=== PATIENT | male | born 1955 | race Hispanic/Latino ===

== ENCOUNTER → 2024-10-15 | Outpatient (REF) | payer MEDICARE ==
[~2024-10-15] MED LIST: LISINOPRIL10 MG PO; METFORMIN HCL500 MG PO; TYLENOL WITH C1 EACH PO
== END ==
LOC: RAD 13:03
PROVIDERS: ATTEND Specialist/Technologist, Other Surgical Technologist
DX: M54.2 Cervicalgia (principal)
CPT/HCPCS: 72040